=== PATIENT | female | born 1990 | race Two or more races ===

== ENCOUNTER 2016-10-28 21:06 | Emergency (ER) | payer OTHER ==
[2016-10-28 21:13] VITALS: PULSE 66; RESP 16
[2016-10-28] MEDS ORDERED: diphenhydrAMINE 25 MG CAP PO ONE (22:30)
[2016-10-28] MEDS ORDERED: DEXAMETHASONE 4 MG TAB PO ONE (22:30)
--- NOTE | 2016-10-28 22:30 | EDPHY ---
General Narrative: CHIEF COMPLAINT: Finger pain and swelling, itching HISTORY OF PRESENT ILLNESS: Patient complains of 2 days of pain and swelling of the left small finger. This is upon return home from a recent trip to [place]. She and her spouse question whether she was stung by an insect or bitten by symptoms. The area is mildly erythematous and very pruritic. There is some swelling. Some pain. No fever chills. No difficulty bending or straightening the finger. No purulence. No warmth. No other associated complaints or modifying factors. REVIEW OF SYSTEMS: Ten systems reviewed and are negative unless otherwise noted in the HPI PAST MEDICAL HISTORY: None PAST SURGICAL HISTORY: None SOCIAL HISTORY: Nonsmoker. Lives here independently with her spouse FAMILY HISTORY: Noncontributory EXAMINATION General Appearance: Alert, no distress Head: normocephalic, atraumatic Eyes: Pupils equal and round, no conjunctival pallor or injection Respiratory: No retractions or distress per Cardiovascular: Regular rate. Symmetric radial pulses 2+. Brisk cap refill in all 10 fingers. Neurological: A&O, nonfocal, normal proprioception a 2 point sensation. Good strength of the interossei. Skin: Warm and dry. No cellulitis. No fluctuance or induration. No warmth to the left small finger MCP, PIP or the IP joints. Mild edema of the left little finger. Mild urticaria of the left little finger. Extremities: Mild tenderness of the left little finger. There is full flexion- extension of all joints of the finger. No pain with passive range of motion of the finger. No appreciation for septic joint. Neurovascular intact distally Psychiatric: Mood and affect normal DIFFERENTIAL DIAGNOSES: Including but not limited to vector inoculation, insect bite, consult cellulitis , contact dermatitis, allergic reaction MDM: 10:30 p.m. Swelling of the left small finger with suspected vector inoculation. This is a pruritic erythema with some mild swelling. No evidence of septic joint. No evidence of cellulitis or abscess. No paronychia or ingrown nail. Treat with steroid anti-inflammatory as well as Benadryl. Follow up closely in 1-2 days with hand surgeon or here for worsening symptoms, difficulty flexing the finger or systemic signs of infection as discussed. She is comfortable this plan and discharged home stable condition - History Smoking Status: Never smoked - Objective Vital Signs: Initial Vital Signs Temperature (C) 98.2 F 10/28/16 21:10 Heart Rate 66 10/28/16 21:10 Respiratory Rate 16 10/28/16 21:10 Blood Pressure 107/65 10/28/16 21:10 O2 Sat (%) 95 10/28/16 21:10 O2 Delivery Mode Room Air Allergies/Adverse Reactions: No Known Allergies Allergy (Unverified 10/28/16 21:10) Home Medications: Medication Instructions Recorded predniSONE [Deltasone] 60 mg PO DAILY #12 tablet 10/28/16 Medications Given: Discontinued Medications Dexamethasone (Decadron) 8 mg PO EDNOW ONE Stop: 10/28/16 22:31 Last Admin: 10/28/16 22:55 Dose: 8 mg Diphenhydramine HCl (Benadryl) 25 mg PO EDNOW ONE Stop: 10/28/16 22:31 Last Admin: 10/28/16 22:55 Dose: 25 mg Departure - Departure Disposition: Home, Routine, Self-Care Clinical Impression: Finger swelling Allergic reaction to insect sting Qualifiers: Encounter type: initial encounter Injury intent: accidental or unintentional Qualified Code(s): T63.481A - Toxic effect of venom of other arthropod, accidental (unintentional), initial encounter Condition: Good Instructions: Insect Bite or Sting (ED) Additional Instructions: 1. Steroid prescription as prescribed starting ThursdayOctober 29 for 4 more days 2. Benadryl 25-50 mg [id number] every 6 hours as needed for the next 3-5 days 3. Follow up with hand surgeon for definitive care 4. return to ED for worsening symptoms Referrals: NONE *PRIMARY CARE P,. [Primary Care Provider] - As per Instructions Anastacia Macias MD [Medical Doctor] - As per Instructions Lyric So MD [Medical Doctor] - As per Instructions Prescriptions: predniSONE [Deltasone] 60 mg PO DAILY #12 tablet
[2016-10-28 23:00] VITALS: BP 121/74; TEMP 97.9; O2SAT 96
== END 2016-10-28 23:00 | disposition home or self-care (01) ==
DX: T63.481A Toxic effect of venom of other arthropod, accidental (unintentional), initial encounter (principal)

== ENCOUNTER 2017-02-14 19:17 | Emergency (ER) | payer OTHER ==
[2017-02-14 19:23] VITALS: TEMP 99.3
[2017-02-14] MEDS ORDERED: IBUPROFEN 600 MG TAB PO ONE (19:34)
--- NOTE | 2017-02-14 19:37 | EDPHY ---
H & P Smoking Status: Never smoked Time Seen by Provider: 02/14/17 19:25 HPI/ROS: CHIEF COMPLAINT: Fever, sore throat, cough HISTORY OF PRESENT ILLNESS: 26-year-old female presents to the emergency department by private vehicle complaining of fever, sore throat and cough that began a few days ago. She states her symptoms became acutely worse last evening and especially today. She denies dysphagia. She has had intermittent fevers and has been taking a seated mid if in. Last dose of acetaminophen was 1 hr prior to arrival. She has also been using [id number] DayQuil. Her had similar symptoms although he is now better. He did not receive a flu shot. She denies chest pain or difficulty breathing. No abdominal pain or vomiting. No neck or back pain. She has a mild headache. Currently on menstrual period, denies . REVIEW OF SYSTEMS: Constitutional: Fever as above. Eyes: No double or blurry vision. ENT: Sore throat. Respiratory: Cough. No shortness of breath Cardiac: No chest pain. Gastrointestinal: No abdominal pain, vomiting or diarrhea. Genitourinary: No dysuria. Musculoskeletal: No neck or back pain. Skin: No rashes. Neurological: headache. (Patria Lopez) Past Medical/Surgical History: Negative (Patria Lopez) Social History: [employer] student (Patria Lopez) Physical Exam: General Appearance: Alert, no distress. Temperature 37.4degrees. Nontoxic appearing. Eyes: Pupils equal and round. Extraocular motions are all intact. ENT: Mouth: Mucous membranes moist. Mild posterior pharyngeal injection noted. No exudate. Small tonsils. No uvular swelling or shift. No muffled voice or trismus. Respiratory: No wheezing, rhonchi, or rales, lungs are clear to auscultation. Cardiovascular: Regular rate and rhythm. Gastrointestinal: Abdomen is soft and nontender, no masses, no rebound or guarding, bowel sounds normal. Neurological: Alert and oriented x 3, cranial nerves II through XII grossly intact Skin: Warm and dry, no rashes. Musculoskeletal: Nontender to palpate along the cervical, thoracic or lumbar spine. Neck is supple. No nuchal rigidity. Extremities: Full range of motion and no peripheral edema. Psychiatric: Patient is oriented X 3, there is no agitation. (Patria Lopez) Constitutional: Initial Vital Signs Temperature (C) 37.4 C 02/14/17 19:19 Heart Rate 87 02/14/17 19:19 Respiratory Rate 16 02/14/17 19:19 Blood Pressure 123/76 H 02/14/17 19:19 O2 Sat (%) 95 02/14/17 19:19 O2 Delivery Mode Room Air Allergies/Adverse Reactions: No Known Allergies Allergy (Unverified 10/28/16 21:10) Home Medications: Medication Instructions Recorded NK [No Known Home Meds] 02/14/17 Medical Decision Making ED Course/Re-evaluation: 26-year-old female presents to the emergency department with sore throat, cough and fever. Rapid strep screen was negative. Patient was also given 600 mg of ibuprofen p.o. in the emergency department. Clinically I think this patient likely has influenza. Patient does not have a history of asthma. She is not . I explained to the patient that I did not think testing for influenza was indicated since she has been sick for several days and I do not think Tamiflu is indicated. Patient verbalized understanding and agreed. Patient does not appear ill. She is tolerating p.o. fluids. She had some ibuprofen with relief. (Patria Lopez) Differential Diagnosis: Including but not limited to influenza, viral upper respiratory infection, strep pharyngitis, mononucleosis, peritonsillar abscess, bronchitis, pneumonia ( Patria Lopez) - Data Points Laboratory Results: 02/14/17 02/14/17 Unknown 19:32 Group A Strep Screen NEGATIVE (NEGATIVE) Group A Strep DNA Pending Medications Given: Discontinued Medications Ibuprofen (Motrin) 600 mg PO EDNOW ONE Stop: 02/14/17 19:35 Last Admin: 02/14/17 19:46 Dose: 600 mg Departure - Departure Disposition: Home, Routine, Self-Care Clinical Impression: Upper respiratory infection Qualifiers: URI type: unspecified URI Qualified Code(s): J06.9 - Acute upper respiratory infection, unspecified Condition: Good Instructions: Influenza (ED), Upper Respiratory Infection (ED) Additional Instructions: Adult Pain & Fever Control: We recommend Acetaminophen (Tylenol) and Ibuprofen (Motrin,Advil) for pain and fever control. When fever is high or pain severe, both drugs can be used at the same time, but at different intervals. Please note the time differences. Your dose is: Acetaminophen 1000mg every 4 to 6 hours Ibuprofen 600mg every 8 hours with food Note: do not take Acetaminophen with Hydrocodone (Vicodin, Lortab) or Oycodone (Percocet). These medications also contain Acetaminophen. No more than 3000mg of Acetaminophen should be taken in 24 hours (for an adult). Call [phone] for the results of your throat culture in 48 hours. Referrals: Calvin Gramajo DO [Doctor of Osteopathy] - 1-2 days without fail (Primary care provider professional nurse)
[2017-02-14 20:55] VITALS: BP 118/87; PULSE 78; RESP 18; O2SAT 97
== END 2017-02-14 20:54 | disposition home or self-care (01) ==
DX: J06.9 Acute upper respiratory infection, unspecified (principal)